=== PATIENT | male | born 1945 | race Caucasian/White ===

== ENCOUNTER 2017-12-15 20:05 | Inpatient (IN) ==
[2017-12-15] MEDS ORDERED: ONDANSETRON 4 MG/2 ML VIAL IV PRN (22:09)
[2017-12-15] MEDS ORDERED: CLOPIDOGREL 300 MG TABLET PO ONE (22:14)
[2017-12-15 23:32] LABS: Calcium 8.2 MG/DL (8.5-10.1); Osmolality,Calculated 282.3 MOS/KG (273-304); Potassium 3.6 MMOL/L (3.5-5.1); Risk Ratio 5.68; Thyroid Stimulating Hormone 4.82 uIU/ml (0.358-3.74)
[2017-12-16 04:57] LABS: Apearance,Urine CLEAR (Clear); Bilirubin,Urine Negative (Negative); Blood, Urine Negative (Negative); Glucose,Urine (UA) Negative (Negative); Ketones,Urine Negative (Negative); Mucus,Urine Occasional /LPF (Occasional); Nitrite,Urine Negative (Negative); Protein,Urine Negative; Squamous Epithelial Cell,Urine Occasional /HPF (0-10); Urine Color Yellow (Yellow); Urine Specific Gravity 1.012 (1.001-1.035); Urine Urobilinogen < 2.0 EU/DL (0.2-1.0); WBC,Urine 1 /HPF (0-6)
[2017-12-16] MEDS ORDERED: ENOXAPARIN 80 MG/0.8 ML SYRINGE SUBCUT SCH (06:30)
[2017-12-16] MEDS ORDERED: LEVOTHYROXINE 75 MCG TABLET PO SCH (06:30)
[2017-12-16 06:39] LABS: Basophils % 0.6 % (0.0-0.8); Eosinophils # 0.1 10*3/uL (0.0-0.87); Eosinophils % 1.6 % (0.00-10.9); Hematocrit 41.6 VOL% (42.0-52.0); Hemoglobin 13.8 GM/DL (14.0-18.0); Immature Granulocytes % 0.3 %; Immature Granulocytes Absolute 0.02 #; Lymphocytes # 2.8 10*3/uL (1.4-4.0); Lymphocytes % 39.9 % (21.2-54.2); Mean Corpuscular HGB Conc 33.2 GM/DL (32-36); Mean Corpuscular Hemoglobin 30 PG (27-34); Mean Corpuscular Volume 89.5 FL (87-102); Mean Platelet Volume 9.4 FL (9.6-12.0); Monocytes # 0.5 10*3/uL (0.11-0.8); Monocytes % 7.1 % (1.7-12.7); Neutrophils # 3.5 10*3/uL (1.4-7.4); Neutrophils % 50.5 % (38.7-73.9); Platelet Count 152 T/CUMM (130-400); Red Blood Count 4.65 MC/CUMM (3.8-5.5); Red Cell Distribution Width 13.5 % (9.3-17.3); White Blood Count 6.9 T/CUMM (4-12)
[2017-12-16 08:36] LABS: Basophils % 0.4 % (0.0-0.8); Eosinophils # 0.1 10*3/uL (0.0-0.87); Eosinophils % 1.6 % (0.00-10.9); Hematocrit 41.1 VOL% (42.0-52.0); Immature Granulocytes % 0.4 %; Immature Granulocytes Absolute 0.03 #; Lymphocytes # 2.3 10*3/uL (1.4-4.0); Lymphocytes % 34.6 % (21.2-54.2); Mean Corpuscular HGB Conc 34.1 GM/DL (32-36); Mean Corpuscular Hemoglobin 30 PG (27-34); Mean Corpuscular Volume 88.4 FL (87-102); Mean Platelet Volume 9.9 FL (9.6-12.0); Monocytes # 0.5 10*3/uL (0.11-0.8); Monocytes % 7.2 % (1.7-12.7); Neutrophils # 3.8 10*3/uL (1.4-7.4); Neutrophils % 55.8 % (38.7-73.9); Platelet Count 145 T/CUMM (130-400); Red Blood Count 4.65 MC/CUMM (3.8-5.5); Red Cell Distribution Width 13.4 % (9.3-17.3); White Blood Count 6.8 T/CUMM (4-12)
[2017-12-16] MEDS ORDERED: CLOPIDOGREL 75 MG TABLET PO SCH (09:00)
[2017-12-16] MEDS ORDERED: ROSUVASTATIN 20 MG TABLET PO SCH (09:00)
[2017-12-16 09:03] LABS: Albumin 3.1 G/DL (3.4-5.0); Bilirubin,Total 0.4 MG/DL (0.2-1.0); Calcium 8.5 MG/DL (8.5-10.1); Osmolality,Calculated 282.1 MOS/KG (273-304); Potassium 3.7 MMOL/L (3.5-5.1); Total Protein 5.9 G/DL (6.4-8.3)
[2017-12-16] MEDS: NITROGLYCERIN SL 0.4 MG TABLET SL PRN ×2 (14:10→14:15)
[2017-12-16] MEDS ORDERED: diphenhydrAMINE CAP 25 MG CAPSULE PO ONE (14:25)
[2017-12-16] MEDS ORDERED: DIAZEPAM 5 MG TABLET PO ONE (14:25)
[2017-12-16] MEDS ORDERED: NITROGLYCERIN 2% OINT 1 INCH/GM PACK TOP SCH (14:37)
[2017-12-16] MEDS: ASPIRIN 325 MG TABLET PO SCH (14:51)
[2017-12-16] MEDS: SODIUM CHLORIDE 0.9% 1,000 ML IV SCH ×2 (14:54→22:54)
[2017-12-16] MEDS ORDERED: LIDOCAINE 1% 20 ML VIAL ONE (15:14)
[2017-12-16] MEDS ORDERED: HEPARIN/NACL 0.9% 2 UNITS/ML 1,000 ML IV ONE (15:14)
[2017-12-16] MEDS ORDERED: fentaNYL 100 MCG/2 ML VIAL ONE (15:34)
[2017-12-16] MEDS ORDERED: MIDAZOLAM 2 MG/2 ML VIAL ONE (15:34)
[2017-12-16] MEDS ORDERED: NITROGLYCERIN 2% OINT 1 INCH/GM PACK TOP ONE (16:22)
[2017-12-16] MEDS ORDERED: MORPHINE 10 MG/1 ML VIAL ONE (16:27)
[2017-12-16] MEDS ORDERED: ACETAMINOPHEN 325 MG TABLET PO PRN (16:27)
[2017-12-16] MEDS ORDERED: ACETAMINOPHEN/CODEINE 300-30 MG TABLET PO PRN (16:27)
[2017-12-16] MEDS ORDERED: MORPHINE 4 MG/1 ML VIAL IV PRN (16:27)
[2017-12-16] MEDS ORDERED: MORPHINE 4 MG/1 ML VIAL IV ONE (16:28)
[2017-12-16] MEDS ORDERED: NITROGLYCERIN DRIP 50 MG/250 ML BOTTLE IV ONE (16:38)
[2017-12-16] MEDS: ROSUVASTATIN 20 MG TABLET PO SCH (16:46)
[2017-12-16] MEDS: PANTOPRAZOLE 40 MG TABLET PO SCH (16:46)
[2017-12-16] MEDS: amLODIPine 5 MG TABLET PO SCH (16:46)
[2017-12-16] MEDS ORDERED: NITROGLYCERIN DRIP 50 MG/250 ML BOTTLE IV PRN ×2 (17:08→17:37)
[2017-12-17] MEDS: traZODone 50 MG TABLET PO SCH ×2 (01:27→21:56)
[2017-12-17 04:59] LABS: Basophils % 0.2 % (0.0-0.8); Eosinophils % 0.4 % (0.00-10.9); Hematocrit 39.7 VOL% (42.0-52.0); Hemoglobin 13.1 GM/DL (14.0-18.0); Immature Granulocytes % 0.3 %; Immature Granulocytes Absolute 0.03 #; Lymphocytes # 1.3 10*3/uL (1.4-4.0); Lymphocytes % 14.2 % (21.2-54.2); Mean Corpuscular Hemoglobin 29 PG (27-34); Mean Corpuscular Volume 88.6 FL (87-102); Mean Platelet Volume 9.6 FL (9.6-12.0); Monocytes # 0.8 10*3/uL (0.11-0.8); Monocytes % 9.1 % (1.7-12.7); Neutrophils # 6.9 10*3/uL (1.4-7.4); Neutrophils % 75.8 % (38.7-73.9); Platelet Count 152 T/CUMM (130-400); Red Blood Count 4.48 MC/CUMM (3.8-5.5); Red Cell Distribution Width 13.4 % (9.3-17.3); White Blood Count 9.1 T/CUMM (4-12)
[2017-12-17 05:33] LABS: Albumin 2.9 G/DL (3.4-5.0); Bilirubin,Total 0.6 MG/DL (0.2-1.0); Calcium 7.7 MG/DL (8.5-10.1); Osmolality,Calculated 283.1 MOS/KG (273-304); Potassium 3.6 MMOL/L (3.5-5.1); Total Protein 5.5 G/DL (6.4-8.3)
[2017-12-17] MEDS: SODIUM CHLORIDE 0.9% 1,000 ML IV SCH ×2 (06:49→13:57)
[2017-12-17] MEDS: LEVOTHYROXINE 88 MCG TABLET PO SCH (06:49)
[2017-12-17] MEDS: ROSUVASTATIN 20 MG TABLET PO SCH (08:17)
[2017-12-17] MEDS: amLODIPine 5 MG TABLET PO SCH (08:18)
[2017-12-17] MEDS: ASPIRIN 325 MG TABLET PO SCH (08:18)
[2017-12-17] MEDS: PANTOPRAZOLE 40 MG TABLET PO SCH (08:18)
[2017-12-17] MEDS: ENOXAPARIN 80 MG/0.8 ML SYRINGE SUBCUT SCH ×2 (08:18→21:56)
[2017-12-17] MEDS: METOPROLOL TARTRATE 25 MG TABLET PO SCH ×2 (09:19→21:56)
[2017-12-17] MEDS: NITROGLYCERIN SL 0.4 MG TABLET SL PRN ×2 (17:00→17:08)
[2017-12-17] MEDS: NITROGLYCERIN 2% OINT 1 INCH/GM PACK TOP SCH (17:06)
[2017-12-18] MEDS: NITROGLYCERIN 2% OINT 1 INCH/GM PACK TOP SCH ×4 (00:05→17:34)
[2017-12-18 03:59] LABS: Basophils % 0.2 % (0.0-0.8); Eosinophils # 0.1 10*3/uL (0.0-0.87); Eosinophils % 0.7 % (0.00-10.9); Hematocrit 36.7 VOL% (42.0-52.0); Hemoglobin 12.1 GM/DL (14.0-18.0); Immature Granulocytes % 0.5 %; Immature Granulocytes Absolute 0.05 #; Lymphocytes # 1.6 10*3/uL (1.4-4.0); Lymphocytes % 17.6 % (21.2-54.2); Mean Corpuscular Hemoglobin 30 PG (27-34); Mean Corpuscular Volume 89.5 FL (87-102); Mean Platelet Volume 10.4 FL (9.6-12.0); Monocytes % 11.1 % (1.7-12.7); Neutrophils # 6.5 10*3/uL (1.4-7.4); Neutrophils % 69.9 % (38.7-73.9); Platelet Count 146 T/CUMM (130-400); Red Cell Distribution Width 13.3 % (9.3-17.3); White Blood Count 9.3 T/CUMM (4-12)
[2017-12-18 04:54] LABS: Calcium 8.1 MG/DL (8.5-10.1); Osmolality,Calculated 280.3 MOS/KG (273-304); Potassium 3.5 MMOL/L (3.5-5.1)
[2017-12-18] MEDS: LEVOTHYROXINE 88 MCG TABLET PO SCH (06:27)
[2017-12-18] MEDS ORDERED: BISACODYL 5 MG TABLET PO ONE (08:44)
[2017-12-18] MEDS: ROSUVASTATIN 20 MG TABLET PO SCH (09:04)
[2017-12-18] MEDS: ENOXAPARIN 80 MG/0.8 ML SYRINGE SUBCUT SCH ×2 (09:04→20:49)
[2017-12-18] MEDS: ASPIRIN 325 MG TABLET PO SCH (09:04)
[2017-12-18] MEDS: PANTOPRAZOLE 40 MG TABLET PO SCH (09:04)
[2017-12-18] MEDS: METOPROLOL TARTRATE 25 MG TABLET PO SCH ×2 (09:04→20:49)
[2017-12-18] MEDS: POLYETHYLENE GLYCOL POWDER 17 GM PACK PO SCH (09:05)
[2017-12-18] MEDS: ASCORBIC ACID 500 MG TABLET PO SCH ×2 (13:53→20:48)
[2017-12-18] MEDS: SPIRONOLACTONE 25 MG TABLET PO SCH (13:53)
[2017-12-18] MEDS: traZODone 50 MG TABLET PO SCH (20:48)
[2017-12-19] MEDS: NITROGLYCERIN 2% OINT 1 INCH/GM PACK TOP SCH ×3 (01:40→12:57)
[2017-12-19 04:21] LABS: Basophils % 0.3 % (0.0-0.8); Eosinophils # 0.2 10*3/uL (0.0-0.87); Eosinophils % 1.9 % (0.00-10.9); Hematocrit 32.9 VOL% (42.0-52.0); Hemoglobin 11.3 GM/DL (14.0-18.0); Immature Granulocytes % 0.6 %; Immature Granulocytes Absolute 0.05 #; Lymphocytes # 1.7 10*3/uL (1.4-4.0); Lymphocytes % 21.6 % (21.2-54.2); Mean Corpuscular HGB Conc 34.3 GM/DL (32-36); Mean Corpuscular Hemoglobin 30 PG (27-34); Mean Corpuscular Volume 87.7 FL (87-102); Mean Platelet Volume 10.7 FL (9.6-12.0); Monocytes # 0.9 10*3/uL (0.11-0.8); Monocytes % 10.9 % (1.7-12.7); Neutrophils # 5.1 10*3/uL (1.4-7.4); Neutrophils % 64.7 % (38.7-73.9); Platelet Count 127 T/CUMM (130-400); Red Blood Count 3.75 MC/CUMM (3.8-5.5); Red Cell Distribution Width 13.5 % (9.3-17.3); White Blood Count 7.9 T/CUMM (4-12)
[2017-12-19 04:40] LABS: Calcium 7.8 MG/DL (8.5-10.1); Osmolality,Calculated 281.3 MOS/KG (273-304); Potassium 3.5 MMOL/L (3.5-5.1)
[2017-12-19] MEDS: LEVOTHYROXINE 88 MCG TABLET PO SCH (06:53)
[2017-12-19] MEDS: ASPIRIN 325 MG TABLET PO SCH (08:24)
[2017-12-19] MEDS: METOPROLOL TARTRATE 25 MG TABLET PO SCH ×2 (08:25→20:58)
[2017-12-19] MEDS: SPIRONOLACTONE 25 MG TABLET PO SCH (08:25)
[2017-12-19] MEDS: ASCORBIC ACID 500 MG TABLET PO SCH ×2 (08:25→21:00)
[2017-12-19] MEDS: ROSUVASTATIN 20 MG TABLET PO SCH (08:25)
[2017-12-19] MEDS: PANTOPRAZOLE 40 MG TABLET PO SCH (08:25)
[2017-12-19] MEDS: ENOXAPARIN 80 MG/0.8 ML SYRINGE SUBCUT SCH (08:26)
[2017-12-19] MEDS: POLYETHYLENE GLYCOL POWDER 17 GM PACK PO SCH (08:26)
[2017-12-19] MEDS: FUROSEMIDE 40 MG/4 ML VIAL IV SCH ×2 (12:57→19:16)
[2017-12-19] MEDS: SODIUM CHLORIDE 0.9% 1,000 ML IV SCH (20:55)
[2017-12-19] MEDS: traZODone 50 MG TABLET PO SCH (20:58)
[2017-12-19] MEDS: CHLORHEXIDINE 0.12% ORAL RINSE 60 ML BOTTLE SWISH/SPIT SCH (20:59)
[2017-12-19] MEDS: CHLORHEXIDINE 4% SOLN 118 ML BOTTLE TOP SCH (22:35)
[2017-12-20] MEDS: NITROGLYCERIN 2% OINT 1 INCH/GM PACK TOP SCH ×3 (01:00→15:17)
[2017-12-20 03:53] LABS: Basophils % 0.4 % (0.0-0.8); Eosinophils # 0.2 10*3/uL (0.0-0.87); Eosinophils % 2.2 % (0.00-10.9); Hematocrit 36.1 VOL% (42.0-52.0); Hemoglobin 12.4 GM/DL (14.0-18.0); Immature Granulocytes % 0.3 %; Immature Granulocytes Absolute 0.02 #; Lymphocytes # 1.7 10*3/uL (1.4-4.0); Lymphocytes % 23.6 % (21.2-54.2); Mean Corpuscular HGB Conc 34.3 GM/DL (32-36); Mean Corpuscular Hemoglobin 30 PG (27-34); Mean Corpuscular Volume 87.2 FL (87-102); Mean Platelet Volume 11.1 FL (9.6-12.0); Monocytes # 0.8 10*3/uL (0.11-0.8); Monocytes % 10.7 % (1.7-12.7); Neutrophils # 4.6 10*3/uL (1.4-7.4); Neutrophils % 62.8 % (38.7-73.9); Platelet Count 140 T/CUMM (130-400); Red Blood Count 4.14 MC/CUMM (3.8-5.5); Red Cell Distribution Width 13.6 % (9.3-17.3); White Blood Count 7.4 T/CUMM (4-12)
[2017-12-20 04:29] LABS: Calcium 8.4 MG/DL (8.5-10.1); Potassium 3.4 MMOL/L (3.5-5.1)
[2017-12-20] MEDS ORDERED: DIAZEPAM 5 MG TABLET PO ONE (05:00)
[2017-12-20] MEDS ORDERED: PAPAVERINE 60 MG/2 ML VIAL ONE (05:24)
[2017-12-20] MEDS ORDERED: VANCOMYCIN 1,000 MG VIAL ONE (05:24)
[2017-12-20] MEDS ORDERED: TISSUE ADHESIVE 1 EACH APPLICATOR TOP ONE (05:24)
[2017-12-20] MEDS ORDERED: CALCIUM CHLORIDE 1,000 MG/10 ML VIAL IV ONE ×2 (05:33→21:34)
[2017-12-20] MEDS ORDERED: MINERAL OIL/PETROLATUM OPH OINT 3.5 GM TUBE ONE (05:33)
[2017-12-20] MEDS ORDERED: HEPARIN/NACL 0.9% 2 UNITS/ML 500 ML IV ONE (05:33)
[2017-12-20] MEDS ORDERED: ETOMIDATE 40 MG/20 ML VIAL IV ONE (05:33)
[2017-12-20] MEDS ORDERED: PHENYLEPHRINE DRIP 20 MG/250 ML PREMIX IV ONE (05:33)
[2017-12-20] MEDS ORDERED: NITROGLYCERIN DRIP 50 MG/250 ML BOTTLE IV ONE (05:34)
[2017-12-20] MEDS ORDERED: AMINOCAPROIC ACID 5,000 MG/20 ML VIAL IV ONE (05:34)
[2017-12-20] MEDS: CHLORHEXIDINE 4% SOLN 118 ML BOTTLE TOP SCH ×3 (06:02→15:18)
[2017-12-20] MEDS: LEVOTHYROXINE 88 MCG TABLET PO SCH (06:14)
[2017-12-20] MEDS: SPIRONOLACTONE 25 MG TABLET PO SCH (09:12)
[2017-12-20] MEDS: METOPROLOL TARTRATE 25 MG TABLET PO SCH (09:12)
[2017-12-20] MEDS: PANTOPRAZOLE 40 MG TABLET PO SCH (09:12)
[2017-12-20] MEDS: FUROSEMIDE 40 MG/4 ML VIAL IV SCH ×2 (09:30→16:03)
[2017-12-20] MEDS: ASPIRIN 325 MG TABLET PO SCH (09:31)
[2017-12-20] MEDS: POLYETHYLENE GLYCOL POWDER 17 GM PACK PO SCH (09:31)
[2017-12-20] MEDS: ROSUVASTATIN 20 MG TABLET PO SCH (09:31)
[2017-12-20] MEDS: ASCORBIC ACID 500 MG TABLET PO SCH (09:32)
[2017-12-20] MEDS: CHLORHEXIDINE 0.12% ORAL RINSE 60 ML BOTTLE SWISH/SPIT SCH (09:54)
[2017-12-20] MEDS ORDERED: POTASSIUM CHLORIDE RIDER 100 ML IV ONE (09:56)
[2017-12-20] MEDS ORDERED: CALCIUM CHLORIDE 1,000 MG/10 ML SYRINGE IV ONE (09:56)
[2017-12-20] MEDS ORDERED: SODIUM BICARBONATE 50 MEQ/50 ML SYRINGE IV ONE ×4 (09:57→23:00)
[2017-12-20] MEDS ORDERED: ALBUMIN 5% 12.5 GM/250 ML VIAL IV ONE (09:58)
[2017-12-20] MEDS ORDERED: MIDAZOLAM 10 MG/2 ML VIAL ONE (11:39)
[2017-12-20] MEDS ORDERED: ePHEDrine 50 MG/ML AMP ONE (11:39)
[2017-12-20] MEDS ORDERED: CEFUROXIME INJ 1,500 MG in SYRINGE 1 EACH IV ONE (12:00)
[2017-12-20 12:27] LABS: ABG HCO3 26.2 MMOL/L (20-26); ABG Oxygen Saturation 99.8 % (95-100); ABG PCO2 40.8 MM HG (35-48); ABG PH 7.422 (7.35-7.45); ABG TCO2 23.4 MMOL/L (23-27); Glucose Heart Surgery 91 MG/DL (74-106); Hematocrit Heart Surgery 37.5 PERCENT (42-52); Hemoglobin Heart Surgery 12.2 G/DL (14.0-18.0); Ionized Calcium Arterial 1.12 MMOL/L (1.21-1.46); PCO2 Patient Temp Arterial 40.8 MMHG; PH Patient Temp Arterial 7.422; Patient Temperature 37 CELCIUS; Potassium Heart/CVR 3.3 MMOL/L (3.5-5.1); Sodium Heart/CVR 139 MMOL/L (135-145)
[2017-12-20] MEDS ORDERED: MIDAZOLAM 2 MG/2 ML VIAL ONE ×2 (12:49→21:34)
[2017-12-20 14:09] LABS: Hemoglobin Heart Surgery 9.7 G/DL (14.0-18.0); PCO2 Patient Temp Venous 25.3 MM HG; PH Patient Temp Venous 7.604; Potassium Heart/CVR 3.5 MMOL/L (3.5-5.1); VBG Base Excess 3.1 MEQ/L (0-4); VBG HCO3 25.3 MEQ/L (24-28); VBG Oxygen Saturation 86.1 %; VBG PCO2 30.1 MMHG (41-51); VBG PH 7.542; VBG PO2 50.3 MMHG (17-40)
[2017-12-20 14:45] LABS: Hematocrit Heart Surgery 29.2 PERCENT (42-52); Hemoglobin Heart Surgery 9.4 G/DL (14.0-18.0); PCO2 Patient Temp Venous 26.6 MM HG; PH Patient Temp Venous 7.566; PO2 Patient Temp Venous 38.1 MM HG; Potassium Heart/CVR 4.9 MMOL/L (3.5-5.1); VBG Base Excess 2.7 MEQ/L (0-4); VBG HCO3 26.7 MEQ/L (24-28); VBG PCO2 33.9 MMHG (41-51); VBG PH 7.49; VBG PO2 53.5 MMHG (17-40)
[2017-12-20 15:11] LABS: Hematocrit Heart Surgery 31.7 PERCENT (42-52); Hemoglobin Heart Surgery 10.3 G/DL (14.0-18.0); PCO2 Patient Temp Venous 26.9 MM HG; PH Patient Temp Venous 7.56; PO2 Patient Temp Venous 36.3 MM HG; VBG Base Excess 2.6 MEQ/L (0-4); VBG HCO3 26.5 MEQ/L (24-28); VBG Oxygen Saturation 88.4 %; VBG PCO2 34.2 MMHG (41-51); VBG PH 7.484; VBG PO2 51.2 MMHG (17-40)
[2017-12-20 15:41] LABS: Hematocrit Heart Surgery 29.9 PERCENT (42-52); Hemoglobin Heart Surgery 9.6 G/DL (14.0-18.0); PCO2 Patient Temp Venous 27.3 MM HG; PH Patient Temp Venous 7.551; PO2 Patient Temp Venous 36.2 MM HG; VBG Base Excess 2.3 MEQ/L (0-4); VBG HCO3 26.3 MEQ/L (24-28); VBG Oxygen Saturation 87.8 %; VBG PCO2 34.8 MMHG (41-51); VBG PH 7.475; VBG PO2 50.9 MMHG (17-40)
[2017-12-20] MEDS: SODIUM CHLORIDE 0.9% 1,000 ML IV SCH (16:03)
[2017-12-20 16:17] LABS: Hemoglobin Heart Surgery 9.3 G/DL (14.0-18.0); PCO2 Patient Temp Venous 26.4 MM HG; PH Patient Temp Venous 7.555; PO2 Patient Temp Venous 32.9 MM HG; Potassium Heart/CVR 4.1 MMOL/L (3.5-5.1); VBG Base Excess 0.6 MEQ/L (0-4); VBG HCO3 23.8 MEQ/L (24-28); VBG Oxygen Saturation 79.5 %; VBG PCO2 32.8 MMHG (41-51); VBG PH 7.479; VBG PO2 46.7 MMHG (17-40)
[2017-12-20 16:43] LABS: Hematocrit Heart Surgery 24.8 PERCENT (42-52); PCO2 Patient Temp Venous 40.2 MM HG; PH Patient Temp Venous 7.433; PO2 Patient Temp Venous 42.5 MM HG; Potassium Heart/CVR 3.3 MMOL/L (3.5-5.1); VBG Base Excess 2.5 MEQ/L (0-4); VBG HCO3 26.4 MEQ/L (24-28); VBG Oxygen Saturation 77.2 %; VBG PCO2 40.2 MMHG (41-51); VBG PH 7.433; VBG PO2 42.5 MMHG (17-40)
[2017-12-20] MEDS ORDERED: THROMBIN TOPICAL (RECOMBINANT) 5,000 UNIT VIAL TOP ONE (17:04)
[2017-12-20] MEDS ORDERED: EPINEPHrine 1 MG/ML VIAL ONE ×2 (17:11→21:35)
[2017-12-20 17:15] LABS: Hematocrit Heart Surgery 23.8 PERCENT (42-52); Hemoglobin Heart Surgery 7.6 G/DL (14.0-18.0); PCO2 Patient Temp Venous 42.1 MM HG; PH Patient Temp Venous 7.408; PO2 Patient Temp Venous 40.2 MM HG; Potassium Heart/CVR 3.4 MMOL/L (3.5-5.1); VBG Base Excess 1.7 MEQ/L (0-4); VBG HCO3 25.7 MEQ/L (24-28); VBG Oxygen Saturation 73.3 %; VBG PCO2 42.1 MMHG (41-51); VBG PH 7.408; VBG PO2 40.2 MMHG (17-40)
[2017-12-20] MEDS ORDERED: DEXTROSE 5% KCL 20 MEQ 60 MEQ/3,000 ML BAG IV ONE (17:17)
[2017-12-20] MEDS ORDERED: PROTAMINE SULFATE 250 MG/25 ML VIAL IV ONE ×2 (17:17→20:17)
[2017-12-20] MEDS ORDERED: ALBUMIN 25% 25 GM/100 ML VIAL IV ONE (17:17)
[2017-12-20] MEDS ORDERED: LIDOCAINE 1% 5 ML VIAL ONE ×2 (17:17→20:17)
[2017-12-20] MEDS ORDERED: MANNITOL 12.5 GM/50 ML VIAL IV ONE ×2 (17:18→20:17)
[2017-12-20] MEDS ORDERED: HEPARIN 10,000 UNIT/10 ML VIAL ONE ×2 (17:18→20:17)
[2017-12-20] MEDS ORDERED: methylPREDNISolone SOD SUC 1,000 MG/8 ML VIAL ONE (17:18)
[2017-12-20] MEDS ORDERED: FUROSEMIDE 20 MG/2 ML VIAL ONE ×2 (17:18→21:35)
[2017-12-20] MEDS ORDERED: PHENYLEPHRINE 1 MG/10 ML SYRINGE IV ONE (17:19)
[2017-12-20 17:53] LABS: ABG HCO3 21.5 MMOL/L (20-26); ABG Oxygen Saturation 97.9 % (95-100); ABG PCO2 41.3 MM HG (35-48); ABG PH 7.335 (7.35-7.45); ABG TCO2 22.8 MMOL/L (23-27); Glucose Heart Surgery 289 MG/DL (74-106); Hemoglobin Heart Surgery 9.4 G/DL (14.0-18.0); Potassium Heart/CVR 2.8 MMOL/L (3.5-5.1); Sodium Heart/CVR 134 MMOL/L (135-145)
[2017-12-20] MEDS ORDERED: EPINEPHrine 1 MG/10 ML SYRINGE ONE (17:53)
[2017-12-20 18:13] LABS: Hemoglobin Heart Surgery 7.4 G/DL (14.0-18.0); PCO2 Patient Temp Venous 50.7 MM HG; PH Patient Temp Venous 7.252; PO2 Patient Temp Venous 37.8 MM HG; Potassium Heart/CVR 3.1 MMOL/L (3.5-5.1); VBG Base Excess -4.9 MEQ/L (0-4); VBG HCO3 19.9 MEQ/L (24-28); VBG Oxygen Saturation 61.1 %; VBG PCO2 50.7 MMHG (41-51); VBG PH 7.252; VBG PO2 37.8 MMHG (17-40)
[2017-12-20 18:38] LABS: PCO2 Patient Temp Venous 38.6 MM HG; PH Patient Temp Venous 7.408; Potassium Heart/CVR 2.3 MMOL/L (3.5-5.1); VBG Base Excess -0.7 MEQ/L (0-4); VBG HCO3 23.8 MEQ/L (24-28); VBG Oxygen Saturation 69.8 %; VBG PCO2 38.6 MMHG (41-51); VBG PH 7.408
[2017-12-20 19:06] LABS: Hemoglobin Heart Surgery 6.7 G/DL (14.0-18.0); Potassium Heart/CVR 2.8 MMOL/L (3.5-5.1); VBG Base Excess -3.6 MEQ/L (0-4); VBG HCO3 22.3 MEQ/L (24-28); VBG PH 7.313; VBG PO2 78.5 MMHG (17-40)
[2017-12-20 19:09] LABS: PCO2 Patient Temp Venous 30.4 MM HG; PH Patient Temp Venous 7.44; PO2 Patient Temp Venous 43.3 MM HG
[2017-12-20 19:39] LABS: PCO2 Patient Temp Venous 34.8 MM HG; PH Patient Temp Venous 7.4; PO2 Patient Temp Venous 51.1 MM HG; Potassium Heart/CVR 3.1 MMOL/L (3.5-5.1); VBG Base Excess -3.4 MEQ/L (0-4); VBG HCO3 21.8 MEQ/L (24-28); VBG Oxygen Saturation 88.5 %; VBG PCO2 39.7 MMHG (41-51); VBG PH 7.357; VBG PO2 62.8 MMHG (17-40)
[2017-12-20 20:05] LABS: ABG Base Excess -6.2 MMOL/L (-2.5-2.5); ABG HCO3 19.1 MMOL/L (20-26); ABG Oxygen Saturation 97.8 % (95-100); ABG PCO2 36.8 MM HG (35-48); ABG PH 7.333 (7.35-7.45); ABG PO2 137.6 MM HG (80-95); ABG TCO2 20.2 MMOL/L (23-27); Glucose Heart Surgery 352 MG/DL (74-106); Hemoglobin Heart Surgery 9.9 G/DL (14.0-18.0); Ionized Calcium Arterial 1.07 MMOL/L (1.21-1.46); PCO2 Patient Temp Arterial 36.8 MMHG; PH Patient Temp Arterial 7.333; PO2 Patient Temp Arterial 137.6 MM HG; Patient Temperature 37 CELCIUS; Potassium Heart/CVR 2.6 MMOL/L (3.5-5.1); Sodium Heart/CVR 137 MMOL/L (135-145)
[2017-12-20] MEDS ORDERED: POTASSIUM CHLORIDE 20 MEQ/10 ML VIAL ONE (20:18)
[2017-12-20] MEDS ORDERED: PHENYLEPHRINE 10 MG/1 ML VIAL IV ONE (20:18)
[2017-12-20] MEDS ORDERED: CALCIUM CHLORIDE 1,000 MG/10 ML SYRINGE IV PRN (21:23)
[2017-12-20] MEDS ORDERED: SODIUM CHLORIDE 0.9% 250 ML IV PRN (21:23)
[2017-12-20] MEDS ORDERED: ACETAMINOPHEN 650 MG SUPP RECTAL PRN (21:23)
[2017-12-20] MEDS ORDERED: DEXTROSE 50% 25 GM/50 ML VIAL IV PRN ×2 (21:23)
[2017-12-20] MEDS ORDERED: MAGNESIUM SULF RIDER 2 GM in PREMIX 1 EACH IV PRN (21:23)
[2017-12-20] MEDS ORDERED: INSULIN REGULAR 100 UNIT/ML IV PRN (21:23)
[2017-12-20] MEDS ORDERED: CHLORHEXIDINE 4% SOLN 118 ML BOTTLE TOP PRN (21:23)
[2017-12-20] MEDS ORDERED: ONDANSETRON 4 MG/2 ML VIAL IV PRN (21:23)
[2017-12-20] MEDS ORDERED: POTASSIUM CHLORIDE RIDER 10 MEQ in PREMIX 1 EACH IV PRN (21:23)
[2017-12-20] MEDS ORDERED: MAGNESIUM SULF RIDER 4 GM in PREMIX 1 EACH IV PRN (21:23)
[2017-12-20] MEDS ORDERED: MIDAZOLAM 2 MG/2 ML VIAL IV PRN (21:23)
[2017-12-20] MEDS ORDERED: MORPHINE 10 MG/1 ML VIAL IV PRN (21:23)
[2017-12-20] MEDS ORDERED: SODIUM CHLORIDE 0.45% 1,000 ML IV SCH ×2 (21:30)
[2017-12-20] MEDS ORDERED: SEVOFLURANE 1 UNIT/15 MINUTE INH ONE (21:34)
[2017-12-20] MEDS ORDERED: fentaNYL 100 MCG/2 ML VIAL ONE (21:35)
[2017-12-20] MEDS ORDERED: VECURONIUM 10 MG VIAL IV ONE (21:35)
[2017-12-20] MEDS ORDERED: SODIUM CHLORIDE 0.9% 1,000 ML IV ONE (21:35)
[2017-12-20] MEDS ORDERED: LACTATED RINGERS 1,000 ML IV ONE (21:35)
[2017-12-20] MEDS ORDERED: PHENYLEPHRINE DRIP 40 MG/250 ML PREMIX IV ONE (21:39)
[2017-12-20 22:16] LABS: ABG Base Excess -4.2 MMOL/L (-2.5-2.5); ABG HCO3 21.3 MMOL/L (20-26); ABG Oxygen Saturation 98.3 % (95-100); ABG PCO2 40.5 MM HG (35-48); ABG PH 7.338 (7.35-7.45); ABG PO2 169.3 MM HG (80-95); ABG TCO2 22.5 MMOL/L (23-27); Glucose Heart Surgery 278 MG/DL (74-106); Hemoglobin Heart Surgery 11.2 G/DL (14.0-18.0)
[2017-12-20 22:18] LABS: Basophils % 0.1 % (0.0-0.8); Eosinophils % 0.2 % (0.00-10.9); Hematocrit 31.6 VOL% (42.0-52.0); Hemoglobin 10.7 GM/DL (14.0-18.0); Immature Granulocytes % 0.9 %; Immature Granulocytes Absolute 0.12 #; Lymphocytes # 0.9 10*3/uL (1.4-4.0); Lymphocytes % 6.8 % (21.2-54.2); Mean Corpuscular HGB Conc 33.9 GM/DL (32-36); Mean Corpuscular Hemoglobin 31 PG (27-34); Mean Corpuscular Volume 90.3 FL (87-102); Mean Platelet Volume 10.6 FL (9.6-12.0); Monocytes # 1.6 10*3/uL (0.11-0.8); Monocytes % 11.7 % (1.7-12.7); Neutrophils % 80.3 % (38.7-73.9); Platelet Count 83 T/CUMM (130-400); Red Cell Distribution Width 13.9 % (9.3-17.3); White Blood Count 13.7 T/CUMM (4-12)
[2017-12-20 22:24] LABS: VBG Base Excess -3.3 MEQ/L (0-4); VBG HCO3 23.8 MEQ/L (24-28); VBG Oxygen Saturation 58.9 %; VBG PCO2 52.3 MMHG (41-51); VBG PH 7.276; VBG PO2 40.5 MMHG (17-40)
[2017-12-20 22:38] LABS: Blood Urea Nitrogen 17 MG/DL (7-18); Calcium 7.6 MG/DL (8.5-10.1); Glucose 301 MG/DL (74-106); Osmolality,Calculated 304.4 MOS/KG (273-304); Potassium 3.3 MMOL/L (3.5-5.1); Sodium 147 MMOL/L (136-145)
[2017-12-20 22:47] LABS: Lactic Acid 9.1 MMOL/L (0.4-2.0)
[2017-12-20 22:51] LABS: INR 1.2; PT Patient Result 12.2 SECS; Partial Thromboplastin Time 40.8 SECS (0-40)
[2017-12-20] MEDS: ALBUMIN 5% 12.5 GM in PREMIX 1 EACH IV PRN ×2 (22:52→23:13)
[2017-12-20] MEDS ORDERED: DOBUTamine 500 MG/250 ML PREMIX IV PRN (22:56)
[2017-12-20] MEDS ORDERED: DOBUTamine 500 MG/250 ML PREMIX IV ONE (22:57)
[2017-12-20] MEDS ORDERED: SODIUM CHLORIDE 0.9% IV ONE (23:00)
[2017-12-20] MEDS ORDERED: INSULIN REGULAR DRIP 100 ML IV PRN (23:00)
[2017-12-20] MEDS ORDERED: CALCIUM GLUCONATE IV ONE (23:00)
[2017-12-20] MEDS: POTASSIUM CHLORIDE RIDER 20 MEQ in PREMIX 1 EACH IV PRN (23:08)
[2017-12-20] MEDS ORDERED: SODIUM CHLORIDE 0.45% IV SCH (23:30)
[2017-12-20] MEDS ORDERED: SODIUM BICARB IV SCH (23:30)
[2017-12-20] MEDS ORDERED: LACTATED RINGERS 500 ML IV ONE (23:48)
[2017-12-21] MEDS: CHLORHEXIDINE 0.12% ORAL RINSE 60 ML BOTTLE SWISH/SPIT SCH ×2 (00:11→08:45)
[2017-12-21] MEDS: METOPROLOL TARTRATE 25 MG TABLET PO SCH (00:12)
[2017-12-21] MEDS: traZODone 50 MG TABLET PO SCH (00:12)
[2017-12-21] MEDS: NITROGLYCERIN 2% OINT 1 INCH/GM PACK TOP SCH (00:12)
[2017-12-21] MEDS: ASCORBIC ACID 500 MG TABLET PO SCH (00:13)
[2017-12-21] MEDS: MORPHINE 4 MG/1 ML VIAL IV PRN ×3 (00:40→17:46)
[2017-12-21] MEDS ORDERED: LACTATED RINGERS 500 ML IV ONE (00:43)
[2017-12-21] MEDS: ASPIRIN EC 325 MG TABLET PO SCH ×2 (00:53→08:46)
[2017-12-21] MEDS: POTASSIUM CHLORIDE RIDER 20 MEQ in PREMIX 1 EACH IV PRN (01:52)
[2017-12-21] MEDS: ALBUMIN 5% 12.5 GM in PREMIX 1 EACH IV PRN ×6 (01:56→18:56)
[2017-12-21 02:46] LABS: Lactic Acid 3.8 MMOL/L (0.4-2.0)
[2017-12-21 02:52] LABS: ABG Base Excess 3.3 MMOL/L (-2.5-2.5); ABG HCO3 27.2 MMOL/L (20-26); ABG Oxygen Saturation 98.5 % (95-100); ABG PCO2 38.5 MM HG (35-48); ABG PH 7.467 (7.35-7.45); ABG PO2 265.2 MM HG (80-95); ABG TCO2 28.4 MMOL/L (23-27); Glucose Heart Surgery 176 MG/DL (74-106); Hemoglobin Heart Surgery 7.6 G/DL (14.0-18.0); Potassium Heart/CVR 4.2 MMOL/L (3.5-5.1)
[2017-12-21 04:57] LABS: ABG Base Excess 3.1 MMOL/L (-2.5-2.5); ABG HCO3 27.3 MMOL/L (20-26); ABG Oxygen Saturation 97.3 % (95-100); ABG PCO2 40.1 MM HG (35-48); ABG PH 7.451 (7.35-7.45); ABG PO2 111.4 MM HG (80-95); ABG TCO2 28.5 MMOL/L (23-27); Glucose Heart Surgery 148 MG/DL (74-106); Hemoglobin Heart Surgery 10.3 G/DL (14.0-18.0); Potassium Heart/CVR 4.1 MMOL/L (3.5-5.1)
[2017-12-21 05:09] LABS: Hematocrit 27.7 VOL% (42.0-52.0); Hemoglobin 9.4 GM/DL (14.0-18.0); Immature Granulocytes % 0.6 %; Immature Granulocytes Absolute 0.05 #; Lymphocytes # 0.8 10*3/uL (1.4-4.0); Lymphocytes % 8.7 % (21.2-54.2); Mean Corpuscular HGB Conc 33.9 GM/DL (32-36); Mean Corpuscular Hemoglobin 30 PG (27-34); Mean Corpuscular Volume 89.4 FL (87-102); Mean Platelet Volume 11.2 FL (9.6-12.0); Monocytes # 0.8 10*3/uL (0.11-0.8); Monocytes % 8.9 % (1.7-12.7); Neutrophils # 7.2 10*3/uL (1.4-7.4); Neutrophils % 81.8 % (38.7-73.9); Platelet Count 62 T/CUMM (130-400); White Blood Count 8.8 T/CUMM (4-12)
[2017-12-21 05:29] LABS: Hypochromasia 1+; Platelet Estimate Decreased
[2017-12-21 05:38] LABS: Calcium 7.2 MG/DL (8.5-10.1); Osmolality,Calculated 295.4 MOS/KG (273-304); Potassium 4.3 MMOL/L (3.5-5.1)
[2017-12-21] MEDS ORDERED: PHENYLEPHRINE DRIP 40 MG/250 ML PREMIX IV PRN (05:55)
[2017-12-21] MEDS: CEFUROXIME INJ 1,500 MG in SYRINGE 1 EACH IV SCH ×2 (06:19→16:31)
[2017-12-21] MEDS ORDERED: SODIUM CHLORIDE 0.45% 1,000 ML IV SCH ×2 (07:00)
[2017-12-21] MEDS ORDERED: HEPARIN/NACL 0.9% 2 UNITS/ML 500 ML IV ONE (08:59)
[2017-12-21] MEDS ORDERED: CHLORHEXIDINE 0.12% ORAL RINSE 60 ML BOTTLE SWISH/SPIT SCH (09:00)
[2017-12-21] MEDS ORDERED: PANTOPRAZOLE 40 MG VIAL IV SCH (09:00)
[2017-12-21 09:51] LABS: ABG Base Excess 3.8 MMOL/L (-2.5-2.5); ABG HCO3 27.8 MMOL/L (20-26); ABG Oxygen Saturation 97.1 % (95-100); ABG PCO2 46.2 MM HG (35-48); ABG PH 7.407 (7.35-7.45); ABG PO2 89.1 MM HG (80-95); ABG TCO2 26.4 MMOL/L (23-27); Glucose Heart Surgery 102 MG/DL (74-106); Potassium Heart/CVR 4.2 MMOL/L (3.5-5.1)
[2017-12-21] MEDS ORDERED: FUROSEMIDE 40 MG/4 ML VIAL IV ONE (13:05)
[2017-12-21] MEDS ORDERED: ASPIRIN CHEW 81 MG TABLET PO ONE (13:40)
[2017-12-21] MEDS ORDERED: EPINEPHRINE IV SCH (18:00)
[2017-12-21] MEDS ORDERED: SODIUM CHLORIDE 0.9% IV SCH (18:00)
[2017-12-21] MEDS ORDERED: EPINEPHrine 1 MG/10 ML SYRINGE IV ONE ×2 (18:05→18:12)
[2017-12-21] MEDS ORDERED: EPINEPHrine 1 MG/ML VIAL ONE (18:10)
[2017-12-21] MEDS ORDERED: EPINEPHrine 1 MG/10 ML SYRINGE ONE (18:11)
[2017-12-21] MEDS ORDERED: LIDOCAINE 100 MG/5 ML SYRINGE IV ONE (18:17)
[2017-12-21] MEDS ORDERED: METOPROLOL TARTRATE 5 MG/5 ML VIAL IV ONE (18:19)
[2017-12-21] MEDS ORDERED: ATROPINE 1 MG/1 ML VIAL IV ONE (18:24)
[2017-12-21] MEDS ORDERED: AMIODARONE 150 MG/3 ML VIAL IV ONE (18:25)
[2017-12-21] MEDS ORDERED: SODIUM BICARBONATE 50 MEQ/50 ML SYRINGE IV ONE (18:28)
[2017-12-21] MEDS ORDERED: CALCIUM CHLORIDE 1,000 MG/10 ML SYRINGE IV ONE (18:28)
[2017-12-21 18:34] LABS: ABG Base Excess 9.2 MMOL/L (-2.5-2.5); ABG Oxygen Saturation 99.8 % (95-100); ABG PCO2 44.6 MM HG (35-48); ABG PH 7.485 (7.35-7.45); ABG TCO2 31.8 MMOL/L (23-27); Glucose Heart Surgery 215 MG/DL (74-106); Hemoglobin Heart Surgery 6.7 G/DL (14.0-18.0); Potassium Heart/CVR 3.9 MMOL/L (3.5-5.1)
[2017-12-21 18:38] LABS: Basophils % 0.1 % (0.0-0.8); Eosinophils % 0.1 % (0.00-10.9); Hematocrit 20.2 VOL% (42.0-52.0); Immature Granulocytes % 0.5 %; Immature Granulocytes Absolute 0.09 #; Lymphocytes # 3.9 10*3/uL (1.4-4.0); Lymphocytes % 21.2 % (21.2-54.2); Mean Corpuscular HGB Conc 33.2 GM/DL (32-36); Mean Corpuscular Hemoglobin 31 PG (27-34); Mean Corpuscular Volume 91.8 FL (87-102); Mean Platelet Volume 12.1 FL (9.6-12.0); Monocytes # 2.2 10*3/uL (0.11-0.8); Monocytes % 12.3 % (1.7-12.7); Neutrophils # 11.9 10*3/uL (1.4-7.4); Neutrophils % 65.8 % (38.7-73.9); Platelet Count 68 T/CUMM (130-400); Red Cell Distribution Width 14.6 % (9.3-17.3)
[2017-12-21] MEDS ORDERED: SODIUM CHLORIDE 0.9% 1,000 ML IV PRN (18:49)
[2017-12-21 18:57] LABS: Alanine Aminotransferase 43 U/L (16-61); Albumin 2.3 G/DL (3.4-5.0); Alkaline Phosphatase 47 U/L (45-117); Aspartate Amino Transferase 118 U/L (0-37); Blood Urea Nitrogen 19 MG/DL (7-18); Calcium 8.6 MG/DL (8.5-10.1); Glucose 196 MG/DL (74-106); Osmolality,Calculated 311.4 MOS/KG (273-304); Potassium 4.4 MMOL/L (3.5-5.1); Sodium 154 MMOL/L (136-145); Total Protein 3.5 G/DL (6.4-8.3)
[2017-12-21 18:58] LABS: Lactic Acid 5.7 MMOL/L (0.4-2.0)
[2017-12-21 19:01] LABS: Hemoglobin 6.7 GM/DL (14.0-18.0); White Blood Count 18.1 T/CUMM (4-12)
[2017-12-21] MEDS ORDERED: PROPOFOL 1,000 MG/100 ML BOTTLE IV ONE (19:16)
[2017-12-21 19:17] VITALS: BP 115/79
[2017-12-21] MEDS ORDERED: INSULIN REGULAR 100 UNIT/ML SUBCUT SCH (20:00)
[2017-12-21 20:17] LABS: ABG Base Excess -9.6 MMOL/L (-2.5-2.5); ABG HCO3 16.7 MMOL/L (20-26); ABG Oxygen Saturation 99.7 % (95-100); ABG PCO2 34.8 MM HG (35-48); ABG PH 7.281 (7.35-7.45); ABG TCO2 15.5 MMOL/L (23-27); Glucose Heart Surgery 171 MG/DL (74-106); Hematocrit Heart Surgery 23.7 PERCENT (42-52); Hemoglobin Heart Surgery 7.6 G/DL (14.0-18.0); Potassium Heart/CVR 5.8 MMOL/L (3.5-5.1)
[2017-12-21 20:35] LABS: Hypochromasia 1+; Platelet Estimate Decreased
[2017-12-21] MEDS ORDERED: ATORVASTATIN 40 MG TABLET PO SCH (21:00)
[2017-12-21] MEDS ORDERED: ETOMIDATE 40 MG/20 ML VIAL IV ONE (21:14)
[2017-12-21] MEDS ORDERED: SUCCINYLCHOLINE 200 MG/10 ML VIAL ONE (21:15)
[2017-12-21] MEDS ORDERED: FUROSEMIDE 40 MG TABLET PO SCH (21:23)
== END 2017-12-21 20:40 | disposition expired | DRG 216 ==
LOC: N.TELEN 21:05 → SUATTDRO 21:05 → N.CC 12-16 17:03 → N.CVR 12-20 13:07
PROVIDERS: ADMIT Internal Medicine; ATTEND Internal Medicine
PROC: CABGAVR (ICD-10-PCS; 2017-12-20 11:43)